=== PATIENT | female | born 1950 | race Caucasian/White ===

== ENCOUNTER 2017-02-27 21:08 | Emergency (ER) | payer MEDICARE, BC ==
[2017-02-27] MEDS ORDERED: SODIUM CHLORIDE 0.9% 1,000 ML IV STA (22:01)
[2017-02-27] MEDS ORDERED: ONDANSETRON 4 MG/2 ML VIAL IVP STA (22:01)
[2017-02-27] MEDS ORDERED: SODIUM CHLORIDE 0.9% 500 ML IV STA (22:01)
[2017-02-27] MEDS ORDERED: HYDROmorphone 1 MG/ML 1 ML SYRINGE IVP STA (22:01)
[2017-02-27] MEDS ORDERED: RX INFO: IV CONTRAST WAS GIVEN 1 EACH MISC MISCELLANE PRN (22:01)
[2017-02-27 23:01] LABS: Appearance,Urine Cloudy (Clear); Basophils % (A) 0 %; Bilirubin,Urine Negative (Negative); CHCM 32.6; Eosinophils # (A) 0.1 k/uL (0-0.7); Eosinophils % (A) 1 %; Glucose,Urine (UA) Negative (Negative); HCT 43.5 % (34.0-46.0); HGB 14.4 gm/dL (11.4-16.0); Ketones,Urine 1+ (Negative); Leukocyte Esterase,Urine Trace (Negative); Luc % (Auto) 1; Lymphocytes # (A) 1.1 k/uL (1.0-4.8); Lymphocytes % (A) 10 %; MCH 28.5 pg (25.0-35.0); MCHC 33.1 g/dL (31.0-37.0); MCV 86.3 fL (80.0-100.0); Mean Platelet Volume 6.7; Monocytes # (A) 0.3 k/uL (0-1.0); Monocytes % (A) 3 %; Mucus,Urine Rare /hpf; Neutrophils # (A) 9.5 k/uL (1.3-7.7); Neutrophils % (A) 86 %; Nitrite,Urine Negative (Negative); PH, Urine 7.5 (5.0-8.0); Particle Count 34099; Protein,Urine Trace (Negative); RBC 5.04 m/uL (3.80-5.40); RBC,Urine 97 /hpf (0-5); RDW 14.2 % (11.5-15.5); Specific Gravity,Urine 1.014 (1.001-1.035); Squamous Epithelial Cell,Urine <1 /hpf (0-4); UA Billing (MACRO vs. MICRO) MICRO; Urobilinogen,Urine <2.0 mg/dL (<2.0); WBC 11.1 k/uL (3.8-10.6); WBC (Perox) 10.17
[2017-02-27 23:08] LABS: ALT 24 U/L (9-52); AST 22 U/L (14-36); Alkaline Phosphatase 112 U/L (38-126); Amylase 49 U/L (30-110); Anion Gap 13 mmol/L; Blood Urea Nitrogen 25 mg/dL (7-17); C Reactive Protein <5.0 mg/L (<10.0); Calcium 10.1 mg/dL (8.4-10.2); Carbon Dioxide 21 mmol/L (22-30); Chloride 109 mmol/L (98-107); Glucose 136 mg/dL (74-99); Non-African American GFR(MDRD) 55 (>60 ml/min/1.73 sqM); Potassium 4.2 mmol/L (3.5-5.1); Sodium 143 mmol/L (137-145); Total Bilirubin 0.7 mg/dL (0.2-1.3); Total Protein 7.3 g/dL (6.3-8.2)
--- NOTE | 2017-02-27 23:30 | XR ---
EXAM: XR Abdomen, 1 View CLINICAL HISTORY: Reason: abdominal pain and constipation TECHNIQUE: Frontal supine view of the abdomen/pelvis. COMPARISON: None FINDINGS: Abdomen: Nonobstructive bowel gas pattern. No free air. Mild amount of stool. Cholecystectomy clips in the right upper quadrant. Surgical robert lie near the gastroesophageal junction. Bones: Degenerative changes of the spine. No acute abnormality. Soft tissues: Normal. Lower chest: Bibasilar opacities. IMPRESSION: Mild stool burden without evidence of obstruction.
[2017-02-28] MEDS ORDERED: ONDANSETRON 4 MG/2 ML VIAL IVP STA (00:25)
--- NOTE | 2017-02-28 00:29 | CT ---
EXAM: CT Abdomen and Pelvis With Intravenous Contrast CLINICAL HISTORY: Reason: abd pain and constipation, weakness TECHNIQUE: Axial computed tomography images of the abdomen and pelvis with intravenous contrast. CTDI is 43.40 mGy and DLP is 1632.10 mGy-cm. This CT exam was performed using one or more of the following dose reduction techniques: automated exposure control, adjustment of the mA and/or kV according to patient size, and/or use of iterative reconstruction technique. COMPARISON: None FINDINGS: Liver: Normal. No focal lesion. Spleen: Normal. No focal lesion. Gallbladder: Status post cholecystectomy. Pancreas: Mild atrophy. No mass. No inflammation. Adrenal glands: Normal. No mass. Kidneys: 4 mm stone in the distal right ureter just before the right UVJ with mild right-sided hydronephrosis and mild right hydroureter. Perinephric stranding and fluid which is prominent around the renal pelvis. Prominent periureteral stranding as well. Small superior right renal cyst. Peripelvic cysts bilaterally. Bowel: Normal appendix. Diverticulosis without evidence of diverticulitis. No bowel obstruction or inflammation. Urinary bladder: Normal. No wall thickening or mass. Reproductive organs: Status post hysterectomy. Muscles: No mass. Subcutaneous tissues: Small fat-containing umbilical hernia. Peritoneal space: Normal. No free fluid. Lymph nodes: Normal. No lymphadenopathy. Vessels: Minimal atherosclerotic calcification. No aneurysm or dissection. Bones: Prominent degenerative changes of right greater than left hips. Mild degenerative changes of the spine. No acute fracture or bony lesion. Lung bases: Bibasilar atelectasis versus scarring. Mild cardiomegaly. Other: Small hiatal hernia. Surgical clips near the gastroesophageal junction. IMPRESSION: 1. Mild right-sided hydroureteronephrosis with a 4 mm stone in the distal right ureter just before the right UVJ. Perinephric stranding and fluid, most prominent about the right renal pelvis. Prominent periureteral stranding as well. 2. Diverticulosis without evidence of diverticulitis. Normal appendix.
[2017-02-28 00:33] VITALS: RESP 18
--- NOTE | 2017-02-28 01:54 | ED ---
Abdominal Pain HPI - General Chief Complaint: Abdominal Pain Stated Complaint: Constipation Time Seen by Provider: 02/27/17 21:52 Source: patient Mode of arrival: wheelchair Limitations: no limitations - History of Present Illness Initial Comments: Extended years old female presented with right lower quadrant pain for about 2 hours prior to arrival in the ER she had her supper after she got nauseous she felt like she threw up pain is intractable saying its 10 over 10 it's in the right lower quadrant area he does not radiate. She is quite a few surgeries on the abdomen she status post hysterectomy, gallbladder, hernia repair and also has a history of kidney stones. Denies any headaches no neck stiffness no chest pain or shortness of breath no abdominal pain no frequency urgency dysuria - Related Data Previous Rx's Medication Instructions Recorded Ibuprofen [Motrin] 600 mg PO Q8HR PRN #45 tab 02/28/17 oxyCODONE-APAP 5-325MG [Percocet 1 tab PO Q6HR PRN #20 tab 02/28/17 5-325 mg] Allergies Allergy/AdvReac Type Severity Reaction Status Date / Time phenazopyridine AdvReac Nausea & Verified 02/27/17 21:18 [From Pyridium] Vomiting Review of Systems ROS Statement: Those systems with pertinent positive or pertinent negative responses have been documented in the HPI. ROS Other: All systems not noted in ROS Statement are negative. 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 Eye: Pupils are equal, round and reactive to light, extra-ocular movements are intact; there is normal conjunctiva bilaterally. Ears, nose, mouth and throat: There are moist mucous membranes and no oral lesions. Neck: The neck is supple, there is no tenderness or JVD. Cardiovascular: There is a regular rate and rhythm. No murmur, rub or gallop is appreciated. Respiratory: To auscultation bilateral, no wheezing no rhonchi no distress respiratory [place] noticed Gastrointestinal: Tender in the right lower quadrant area, positive bowel sounds, she is guarding present. Back: There is no tenderness to palpation in the midline. There is no obvious deformity. Musculoskeletal: Normal ROM, no tenderness, There is no pedal edema. There is no calf tenderness or swelling. No cords were appreciated. Neurological: CN II-XII intact, Cranial nerves III through XII are intact. There are no obvious motor or sensory deficits. Coordination appears grossly intact. Speech is normal. Psychiatric: Cooperative, appropriate mood & affect, normal judgment. Limitations: no limitations Course Vital Signs 02/27/17 02/28/17 21:13 00:29 Temperature 98 F Pulse Rate 59 L 73 Respiratory 20 18 Rate Blood Pressure 190/84 165/81 O2 Sat by Pulse 97 96 Oximetry , She required pain medications, nausea medicine finally pain improved her CBC is negative compressive metabolic panel C-reactive protein and KUB are negative , CT of the abdomen showed right hydroureter nephrosis - Reevaluation(s) Reevaluation #2: 02/28/17 01:49 , At term 145 she feels 80% better, I offered her that if she still in pain and we could watch her overnight, since pain is 80% better is is a likelihood that she has passed the stone there and she agreed to go home on pain medication and we can refer her to urology Dr. Escobedo is on today and she'll call his office was seen in the morning and make an appointment with him Medical Decision Making - Lab Data Result diagrams: 02/27/17 22:30 02/27/17 22:30 Lab Results 02/27/17 02/27/17 02/27/17 Range/Units 22:30 22:30 22:30 WBC 11.1 H (3.8-10.6) k/uL RBC 5.04 (3.80-5.40) m/uL Hgb 14.4 (11.4-16.0) gm/dL Hct 43.5 (34.0-46.0) % MCV 86.3 (80.0-100.0) fL MCH 28.5 (25.0-35.0) pg MCHC 33.1 (31.0-37.0) g/dL RDW 14.2 (11.5-15.5) % Plt Count 259 (150-450) k/uL Neutrophils % 86 % Lymphocytes % 10 % Monocytes % 3 % Eosinophils % 1 % Basophils % 0 % Neutrophils # 9.5 H (1.3-7.7) k/uL Lymphocytes # 1.1 (1.0-4.8) k/uL Monocytes # 0.3 (0-1.0) k/uL Eosinophils # 0.1 (0-0.7) k/uL Basophils # 0.0 (0-0.2) k/uL Sodium 143 (137-145) mmol/L Potassium 4.2 (3.5-5.1) mmol/L Chloride 109 H (98-107) mmol/L Carbon Dioxide 21 L (22-30) mmol/L Anion Gap 13 mmol/L BUN 25 H (7-17) mg/dL Creatinine 1.00 (0.52-1.04) mg/dL Est GFR (MDRD) Af Amer >60 (>60 ml/min/1.73 sqM) Est GFR (MDRD) Non-Af 55 (>60 ml/min/1.73 sqM) Glucose 136 H (74-99) mg/dL Plasma Lactic Acid [place] 1.8 (0.7-2.0) mmol/L Calcium 10.1 (8.4-10.2) mg/dL Total Bilirubin 0.7 (0.2-1.3) mg/dL AST 22 (14-36) U/L ALT 24 (9-52) U/L Alkaline Phosphatase 112 (38-126) U/L C-Reactive Protein <5.0 (<10.0) mg/L Total Protein 7.3 (6.3-8.2) g/dL Albumin 4.2 (3.5-5.0) g/dL Amylase 49 (30-110) U/L Lipase 27 (23-300) U/L Urine Color Urine Appearance (Clear) Urine pH (5.0-8.0) Ur Specific [place] (1.001-1.035) Urine Protein (Negative) Urine Glucose (UA) (Negative) Urine Ketones (Negative) Urine Blood (Negative) Urine Nitrite (Negative) Urine Bilirubin (Negative) Urine Urobilinogen (<2.0) mg/dL Ur Leukocyte Esterase (Negative) Urine RBC (0-5) /hpf Ur Squamous Epith Cells (0-4) /hpf Urine Mucus (None) /hpf 02/27/17 Range/Units 22:30 WBC (3.8-10.6) k/uL RBC (3.80-5.40) m/uL Hgb (11.4-16.0) gm/dL Hct (34.0-46.0) % MCV (80.0-100.0) fL MCH (25.0-35.0) pg MCHC (31.0-37.0) g/dL RDW (11.5-15.5) % Plt Count (150-450) k/uL Neutrophils % % Lymphocytes % % Monocytes % % Eosinophils % % Basophils % % Neutrophils # (1.3-7.7) k/uL Lymphocytes # (1.0-4.8) k/uL Monocytes # (0-1.0) k/uL Eosinophils # (0-0.7) k/uL Basophils # (0-0.2) k/uL Sodium (137-145) mmol/L Potassium (3.5-5.1) mmol/L Chloride (98-107) mmol/L Carbon Dioxide (22-30) mmol/L Anion Gap mmol/L BUN (7-17) mg/dL Creatinine (0.52-1.04) mg/dL Est GFR (MDRD) Af Amer (>60 ml/min/1.73 sqM) Est GFR (MDRD) Non-Af (>60 ml/min/1.73 sqM) Glucose (74-99) mg/dL Plasma Lactic Acid [place] (0.7-2.0) mmol/L Calcium (8.4-10.2) mg/dL Total Bilirubin (0.2-1.3) mg/dL AST (14-36) U/L ALT (9-52) U/L Alkaline Phosphatase (38-126) U/L C-Reactive Protein (<10.0) mg/L Total Protein (6.3-8.2) g/dL Albumin (3.5-5.0) g/dL Amylase (30-110) U/L Lipase (23-300) U/L Urine Color Yellow Urine Appearance Cloudy H (Clear) Urine pH 7.5 (5.0-8.0) Ur Specific [place] 1.014 (1.001-1.035) Urine Protein Trace H (Negative) Urine Glucose (UA) Negative (Negative) Urine Ketones 1+ H (Negative) Urine Blood Moderate H (Negative) Urine Nitrite Negative (Negative) Urine Bilirubin Negative (Negative) Urine Urobilinogen <2.0 (<2.0) mg/dL Ur Leukocyte Esterase Trace H (Negative) Urine RBC 97 H (0-5) /hpf Ur Squamous Epith Cells <1 (0-4) /hpf Urine Mucus Rare H (None) /hpf Disposition Clinical Impression: Right lower quadrant pain, Hydroureteronephrosis Disposition: HOME SELF-CARE Instructions: Abdominal Pain (ED) Prescriptions: Ibuprofen [Motrin] 600 mg PO Q8HR PRN #45 tab PRN Reason: Pain oxyCODONE-APAP 5-325MG [Percocet 5-325 mg] 1 tab PO Q6HR PRN #20 tab PRN Reason: Pain Referrals: Casey Isaac MD [Primary Care Provider] - 1-2 days Tigre Escobedo MD [STAFF PHYSICIAN] - 1-2 days
[2017-02-28 02:05] VITALS: BP 162/87; PULSE 70; TEMP 97.1
== END 2017-02-28 02:04 | disposition home or self-care (01) ==
LOC: EC 21:08
DX: N13.30 Unspecified hydronephrosis (principal); Z88.1 Allergy status to other antibiotic agents; Z90.49 Acquired absence of other specified parts of digestive tract; Z90.710 Acquired absence of both cervix and uterus; Z98.51 Tubal ligation status
CPT/HCPCS: 99284; 96374; 96375 ×2; 96361 ×3; 36415; 80053; 82150; 83605; 83690; 85025; 86140; 81001; 74000; 74177; Q9967; J2405 ×2; J1170; 96376

== ENCOUNTER 2017-02-28 19:26 | Emergency (ER) | payer MEDICARE, BC ==
[2017-02-28] MEDS ORDERED: ONDANSETRON 4 MG/2 ML VIAL IVP STA ×2 (20:06→22:16)
[2017-02-28] MEDS ORDERED: SODIUM CHLORIDE 0.9% 1,000 ML IV STA (20:06)
[2017-02-28] MEDS ORDERED: HYDROmorphone 1 MG/ML 1 ML SYRINGE IVP STA (20:06)
[2017-02-28 20:30] LABS: Basophils % (A) 0 %; CH 28.1; CHCM 32.7; Eosinophils # (A) 0.1 k/uL (0-0.7); Eosinophils % (A) 1 %; HCT 42.5 % (34.0-46.0); HDW 2.21; HGB 13.7 gm/dL (11.4-16.0); Luc # (Auto) 0.15; Luc % (Auto) 1; Lymphocytes # (A) 1.4 k/uL (1.0-4.8); Lymphocytes % (A) 13 %; MCH 27.7 pg (25.0-35.0); MCHC 32.1 g/dL (31.0-37.0); MCV 86.2 fL (80.0-100.0); Mean Platelet Volume 6.7; Monocytes # (A) 0.5 k/uL (0-1.0); Monocytes % (A) 5 %; Neutrophils # (A) 8.9 k/uL (1.3-7.7); Neutrophils % (A) 80 %; RBC 4.94 m/uL (3.80-5.40); RDW 14.3 % (11.5-15.5); WBC 11.1 k/uL (3.8-10.6); WBC (Perox) 10.55
[2017-02-28 20:37] LABS: ALT 22 U/L (9-52); AST 31 U/L (14-36); Alkaline Phosphatase 101 U/L (38-126); Amylase 50 U/L (30-110); Anion Gap 7 mmol/L; Blood Urea Nitrogen 22 mg/dL (7-17); Calcium 9.7 mg/dL (8.4-10.2); Carbon Dioxide 24 mmol/L (22-30); Chloride 110 mmol/L (98-107); Glucose 117 mg/dL (74-99); Non-African American GFR(MDRD) >60 (>60 ml/min/1.73 sqM); Potassium 4.5 mmol/L (3.5-5.1); Sodium 141 mmol/L (137-145); Total Bilirubin 0.9 mg/dL (0.2-1.3); Total Protein 7.6 g/dL (6.3-8.2)
--- NOTE | 2017-02-28 20:39 | XR ---
EXAMINATION TYPE: XR KUB DATE OF EXAM: 02/28/2017 8:31 PM COMPARISON: NONE HISTORY: Flank pain right lower quadrant pain TECHNIQUE: 2 views FINDINGS: Bowel gas pattern is normal. There is no sign of intestinal obstruction or pneumoperitoneum . Fecal pattern is normal. There are clips from cholecystectomy. There are no pathologic calcificatio ns over the kidneys. IMPRESSION: Nonacute abdomen. No change.
--- NOTE | 2017-02-28 20:41 | ED ---
Abdominal Pain HPI - General Chief Complaint: Abdominal Pain Stated Complaint: Abd Pain Time Seen by Provider: 02/28/17 20:05 Source: patient, RN notes reviewed, old records reviewed Mode of arrival: ambulatory Limitations: no limitations - History of Present Illness Initial Comments: 66-year-old female presents emergency Department chief complaint flank pain. Patient was seen here last night diagnosed with kidney stone. Patient states she was unable to picker tender her pain medication because her pharmacy was closed. She did not tarry or any other pharmacy. Patient states she just cannot tolerate the pain this time. Patient states she's nauseated and had an episode of vomiting. Denies fever or chills. Denies chest pain or shortness breath. He states it radiates from her right back region to her right lower abdomen. - Related Data Home Medications Medication Instructions Recorded Confirmed Aspirin EC [Ecotrin] 325 mg PO DAILY 02/28/17 02/28/17 Atenolol [Tenormin] 25 mg PO DAILY 02/28/17 02/28/17 Previous Rx's Medication Instructions Recorded Ibuprofen [Motrin] 600 mg PO Q8HR PRN #45 tab 02/28/17 oxyCODONE-APAP 5-325MG [Percocet 1 tab PO Q6HR PRN #20 tab 02/28/17 5-325 mg] Allergies Allergy/AdvReac Type Severity Reaction Status Date / Time phenazopyridine AdvReac Nausea & Verified 02/28/17 20:54 [From Pyridium] Vomiting Review of Systems ROS Statement: Those systems with pertinent positive or pertinent negative responses have been documented in the HPI. ROS Other: All systems not noted in ROS Statement are negative. 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 Absent: tenderness, meningismus, lymphadenopathy Respiratory exam: Present: normal lung sounds bilaterally. Absent: respiratory distress, wheezes, rales, rhonchi, stridor Cardiovascular Exam: Present: regular rate, normal rhythm, normal heart sounds. Absent: systolic murmur, diastolic murmur, rubs, gallop, clicks GI/Abdominal exam: Present: soft, tenderness (Minimal pain with palpation to the right flank region over the area of reported pain), normal bowel sounds. Absent: distended, guarding, rebound, rigid Back exam: Present: CVA tenderness (R). Absent: CVA tenderness (L) Neurological exam: Present: alert, oriented X3, CN II-XII intact Skin exam: Present: warm, dry, intact, normal color. Absent: rash Course Vital Signs 02/28/17 02/28/17 19:39 21:35 Temperature 99.2 F 98 F Pulse Rate 69 102 H Respiratory 20 18 Rate Blood Pressure 185/79 135/76 O2 Sat by Pulse 95 95 Oximetry Medical Decision Making - Medical Decision Making 66-year-old female presented emergency department for right flank pain. Patient has a kidney stone on CT yesterday. Patient is feeling improved after IV fluids, pain medication at this time. Patient was sent home with Tylenol codeine and Zofran starter packs. Patient does have prescription from yesterday that she can fill tomorrow when pharmacies are open - Lab Data Result diagrams: 02/28/17 20:15 02/28/17 20:15 Lab Results 02/28/17 02/28/17 02/28/17 Range/Units 20:15 20:15 22:10 WBC 11.1 H (3.8-10.6) k/uL RBC 4.94 (3.80-5.40) m/uL Hgb 13.7 (11.4-16.0) gm/dL Hct 42.5 (34.0-46.0) % MCV 86.2 (80.0-100.0) fL MCH 27.7 (25.0-35.0) pg MCHC 32.1 (31.0-37.0) g/dL RDW 14.3 (11.5-15.5) % Plt Count 269 (150-450) k/uL Neutrophils % 80 % Lymphocytes % 13 % Monocytes % 5 % Eosinophils % 1 % Basophils % 0 % Neutrophils # 8.9 H (1.3-7.7) k/uL Lymphocytes # 1.4 (1.0-4.8) k/uL Monocytes # 0.5 (0-1.0) k/uL Eosinophils # 0.1 (0-0.7) k/uL Basophils # 0.0 (0-0.2) k/uL Sodium 141 (137-145) mmol/L Potassium 4.5 (3.5-5.1) mmol/L Chloride 110 H (98-107) mmol/L Carbon Dioxide 24 (22-30) mmol/L Anion Gap 7 mmol/L BUN 22 H (7-17) mg/dL Creatinine 0.92 (0.52-1.04) mg/dL Est GFR (MDRD) Af Amer >60 (>60 ml/min/1.73 sqM) Est GFR (MDRD) Non-Af >60 (>60 ml/min/1.73 sqM) Glucose 117 H (74-99) mg/dL Calcium 9.7 (8.4-10.2) mg/dL Total Bilirubin 0.9 (0.2-1.3) mg/dL AST 31 (14-36) U/L ALT 22 (9-52) U/L Alkaline Phosphatase 101 (38-126) U/L Total Protein 7.6 (6.3-8.2) g/dL Albumin 4.3 (3.5-5.0) g/dL Amylase 50 (30-110) U/L Lipase 45 (23-300) U/L Urine Color Light Yellow Urine Appearance Clear (Clear) Urine pH 5.5 (5.0-8.0) Ur Specific [place] 1.013 (1.001-1.035) Urine Protein Negative (Negative) Urine Glucose (UA) Negative (Negative) Urine Ketones Trace H (Negative) Urine Blood Moderate H (Negative) Urine Nitrite Negative (Negative) Urine Bilirubin Negative (Negative) Urine Urobilinogen <2.0 (<2.0) mg/dL Ur Leukocyte Esterase Moderate H (Negative) Urine RBC 72 H (0-5) /hpf Urine WBC 4 (0-5) /hpf Ur Squamous Epith Cells 1 (0-4) /hpf Urine Mucus Rare H (None) /hpf Disposition Clinical Impression: Ureteral calculi Disposition: HOME SELF-CARE Condition: Stable Instructions: Kidney Stones (ED) Additional Instructions: Please return to the Emergency Department if symptoms worsen or any other concerns. Referrals: Casey Isaac MD [Primary Care Provider] - 1-2 days Time of Disposition: 22:29
[2017-02-28 21:37] VITALS: RESP 18
[2017-02-28] MEDS ORDERED: SODIUM CHLORIDE 0.9% 1,000 ML IV ONE (21:47)
[2017-02-28 22:25] LABS: Appearance,Urine Clear (Clear); Bilirubin,Urine Negative (Negative); Glucose,Urine (UA) Negative (Negative); Ketones,Urine Trace (Negative); Leukocyte Esterase,Urine Moderate (Negative); Mucus,Urine Rare /hpf; Nitrite,Urine Negative (Negative); PH, Urine 5.5 (5.0-8.0); Particle Count 1526; Protein,Urine Negative (Negative); RBC,Urine 72 /hpf (0-5); Specific Gravity,Urine 1.013 (1.001-1.035); Squamous Epithelial Cell,Urine 1 /hpf (0-4); UA Billing (MACRO vs. MICRO) MICRO; Urobilinogen,Urine <2.0 mg/dL (<2.0); WBC,Urine 4 /hpf (0-5)
[2017-02-28] MEDS ORDERED: ACET/COD 300 MG/30 MG STARTER PACK 6 TAB BTL PO STA (22:27)
[2017-02-28] MEDS ORDERED: ONDANSETRON 4 MG ODT STARTER PACK 2 TAB BTL PO STA (22:27)
[2017-02-28 22:51] VITALS: BP 158/81; PULSE 129; TEMP 98.5
== END 2017-02-28 22:50 | disposition home or self-care (01) ==
LOC: EC 19:26
DX: N20.1 Calculus of ureter (principal); Z90.49 Acquired absence of other specified parts of digestive tract; Z88.8 Allergy status to other drugs, medicaments and biological substances; Z79.82 Long term (current) use of aspirin; Z79.899 Other long term (current) drug therapy
CPT/HCPCS: 99284; 96374; 96375; 96376; 96361 ×2; 36415; 80053; 82150; 83690; 85025; 81001; 74000; J2405; J1170; S0119

== ENCOUNTER 2023-01-18 20:26 | Emergency (ER) | payer MEDICARE ==
[2023-01-18 21:07] VITALS: TEMP 98.3
[2023-01-18] MEDS ORDERED: SODIUM CHLORIDE 0.9% 500 ML 500 ML IV STA (21:37)
[2023-01-18 22:44] LABS: Basophils % (A) 0 %; Eosinophils # (A) 0.1 k/uL (0-0.7); Eosinophils % (A) 1 %; HCT 44.6 % (34.0-46.0); HGB 14.4 gm/dL (11.4-16.0); Lymphocytes # (A) 1.1 k/uL (1.0-4.8); Lymphocytes % (A) 12 %; MCH 28.2 pg (25.0-35.0); MCHC 32.4 g/dL (31.0-37.0); Mean Platelet Volume 7.4; Monocytes # (A) 0.4 k/uL (0-1.0); Monocytes % (A) 4 %; Neutrophils # (A) 7.7 k/uL (1.3-7.7); Neutrophils % (A) 82 %; Platelet Count 255 k/uL (150-450); RBC 5.12 m/uL (3.80-5.40); WBC 9.3 k/uL (3.8-10.6)
[2023-01-18 23:06] LABS: Appearance,Urine Clear (Clear); Bilirubin,Urine Negative (Negative); Blood,Urine Small (Negative); Color,Urine Light Yellow; Glucose,Urine (UA) Negative (Negative); Ketones,Urine Negative (Negative); Leukocyte Esterase,Urine Negative (Negative); Nitrite,Urine Negative (Negative); Protein,Urine Negative (Negative); RBC,Urine 15 /hpf (0-5); Specific Gravity,Urine 1.012 (1.001-1.035); Urobilinogen,Urine <2.0 mg/dL (<2.0); WBC,Urine 2 /hpf (0-5)
[2023-01-18 23:08] LABS: Albumin 4.1 g/dL (3.5-5.0); Calcium 9.2 mg/dL (8.4-10.2); Total Bilirubin 0.6 mg/dL (0.2-1.3); Total Protein 7.6 g/dL (6.3-8.2)
--- NOTE | 2023-01-18 23:17 | ED ---
Abdominal Pain HPI - General Chief Complaint: Abdominal Pain Stated Complaint: Kidney stones Time Seen by Provider: 01/18/23 21:33 Source: patient, family Mode of arrival: wheelchair Limitations: no limitations - History of Present Illness Initial Comments: Patient is a 72-year-old female presents to the emergency department for right back pain. Patient states this morning she felt urinary urgency and frequency. She denies any burning or blood in the urine. This evening patient felt pain in her right back which she states was similar to her kidney stone pain. The pain lasted about 5 minutes and went away. Patient has not had any pain since the episode. She denies any urinary symptoms currently. She denies fever, chills, nausea, vomiting. Denies chest pain and shortness of breath. - Related Data Home Medications Medication Instructions Recorded Confirmed Aspirin EC [Ecotrin] 325 mg PO HS 02/28/17 01/18/23 Oxybutynin Chloride 5 mg PO BID 01/18/23 01/18/23 Valsartan [Diovan] 160 mg PO DAILY 01/18/23 01/18/23 amLODIPine [Norvasc] 2.5 mg PO HS 01/18/23 01/18/23 Previous Rx's Medication Instructions Recorded Ondansetron Odt [Zofran Odt] 4 mg PO Q8HR PRN #9 tab 01/18/23 Tamsulosin [Flomax] 0.4 mg PO DAILY #7 cap 01/18/23 Allergies Allergy/AdvReac Type Severity Reaction Status Date / Time phenazopyridine AdvReac Nausea & Verified 01/18/23 22:19 [From Pyridium] Vomiting Review of Systems ROS Statement: Those systems with pertinent positive or pertinent negative responses have been documented in the HPI. ROS Other: All systems not noted in ROS Statement are negative. 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 Absent: respiratory distress, wheezes, rales, rhonchi, stridor Cardiovascular Exam: Present: normal rhythm, tachycardia (Patient states she has history of tachycardia, takes atenolol.), normal heart sounds. Absent: regular rate, systolic murmur, diastolic murmur, rubs, gallop, clicks GI/Abdominal exam: Present: soft, normal bowel sounds. Absent: distended, tenderness, guarding, rebound, rigid Back exam: Present: normal inspection. Absent: CVA tenderness (R), CVA tenderness (L), paraspinal tenderness, vertebral tenderness Neurological exam: Present: alert, oriented X3, CN II-XII intact Psychiatric exam: Present: normal affect, normal mood Skin exam: Present: warm, dry, intact, normal color. Absent: rash Course Vital Signs 01/18/23 21:03 Temperature 98.3 F Pulse Rate 122 H Respiratory 17 Rate Blood Pressure 158/92 O2 Sat by Pulse 95 Oximetry Medical Decision Making - Medical Decision Making Was pt. sent in by a medical professional or institution (, PA, MARBLEIZING MACHINE TENDER, urgent care, hospital, or long-term...) When possible be specific @ -No Did you speak to anyone other than the patient for history (EMS, parent, family, police, friend...)? What history was obtained from this source @ -No Did you review nursing and triage notes (agree or disagree)? Why? @ -I reviewed and agree with nursing and triage notes Were old charts reviewed (outside hosp., previous admission, EMS record, old EKG, old radiological studies, urgent care reports/EKG's, long-term records)? Report findings @ -No old charts were reviewed Differential Diagnosis (chest pain, altered mental status, abdominal pain women, abdominal pain men, vaginal bleeding, weakness, fever, dyspnea, syncope, headache, dizziness, GI bleed, back pain, seizure, CVA, palpatations, mental health)? @ -Differential Abdominal Pain Women: Appendicitis, Cholecystitis, diverticulosis, ischemic bowel, pancreatitis, hepatitis, UTI, gastroenteritis, AAA, incarcerated hernia, bowel obstruction, constipation, inflammatory bowel, hepatitis, peptic ulcer disease, splenic infarction, perforated viscus, vulvitis, ovarian torsion, PID, kidney stone, placenta abruption, this is not meant to be an all-inclusive list EKG interpreted by me (3pts min.). @ -As above X-rays interpreted by me (1pt min.). @ -None done CT interpreted by me (1pt min.). @ -Yes, CT of the abdomen and pelvis without contrast shows a 3 mm stone at the ureterovesicular junction with mild hydronephrosis U/S interpreted by me (1pt. min.). @ -None done What testing was considered but not performed or refused? (CT, X-rays, U/S, labs)? Why? @ -None What meds were considered but not given or refused? Why? @ -None Did you discuss the management of the patient with other professionals (professionals i.e. , PA, MARBLEIZING MACHINE TENDER, lab, RT, psych nurse, social science professor, pressure tester operator, teacher, chairman president and chief executive officer, case finisher)? Give summary @ -No Was smoking cessation discussed for >3mins.? @ -No Was critical care preformed (if so, how long)? @ -No Were there social determinants of health that impacted care today? How? (Homelessness, low income, unemployed, alcoholism, drug addiction, transportation, low edu. Level, literacy, decrease access to med. care, detention, rehab)? @ -No Was there de-escalation of care discussed even if they declined (Discuss DNR or withdrawal of care, Hospice)? DNR status @ -No What co-morbidities impacted this encounter? (DM, HTN, Smoking, COPD, CAD, Cancer, CVA, ARF, Chemo, Hep., AIDS, mental health diagnosis, sleep apnea, morbid obesity)? @ -None Was patient admitted / discharged? Hospital course, mention meds given and route, prescriptions, significant lab abnormalities, going to OR and other pertinent info. @ -Patient presenting for possible kidney stone. Patient has no symptoms currently. Laboratory studies obtained. Kidney function is relatively normal. Urinalysis does reveal blood. CT showed a 3 mm kidney stone at the ureterovesical junction with mild hydronephrosis. Patient given Flomax. Results discussed the patient she will be discharged with Flomax and Zofran. She will take Tylenol for pain as GFR is 60. She will follow up with urology and increase fluid intake. Undiagnosed new problem with uncertain prognosis? @ -No Drug Therapy requiring intensive monitoring for toxicity (Heparin, Nitro, Insuli n, Cardizem)? @ -No Were any procedures done? @ -No Diagnosis/symptom? @ -kidney stone Acute, or Chronic, or Acute on Chronic? @ acute Uncomplicated (without systemic symptoms) or Complicated (systemic symptoms)? @ -uncomplicated Side effects of treatment? @ -No Exacerbation, Progression, or Severe Exacerbation? @ -No Poses a threat to life or bodily function? How? (Chest pain, [place], [place], pneumonia, PE, COPD, DKA, ARF, appy, cholecystitis, CVA, Diverticulitis, Homicidal, Suicidal, threat to staff... and all critical care pts) @ -No Dr. Grimes is my attending - Lab Data Result diagrams: 01/18/23 22:10 01/18/23 22:10 Lab Results 01/18/23 01/18/23 01/18/23 Range/Units 22:10 22:10 22:10 WBC 9.3 (3.8-10.6) k/uL RBC 5.12 (3.80-5.40) m/uL Hgb 14.4 (11.4-16.0) gm/dL Hct 44.6 (34.0-46.0) % MCV 87.0 (80.0-100.0) fL MCH 28.2 (25.0-35.0) pg MCHC 32.4 (31.0-37.0) g/dL RDW 14.0 (11.5-15.5) % Plt Count 255 (150-450) k/uL MPV 7.4 Neutrophils % 82 % Lymphocytes % 12 % Monocytes % 4 % Eosinophils % 1 % Basophils % 0 % Neutrophils # 7.7 (1.3-7.7) k/uL Lymphocytes # 1.1 (1.0-4.8) k/uL Monocytes # 0.4 (0-1.0) k/uL Eosinophils # 0.1 (0-0.7) k/uL Basophils # 0.0 (0-0.2) k/uL Sodium 139 (137-145) mmol/L Potassium 4.0 (3.5-5.1) mmol/L Chloride 105 (98-107) mmol/L Carbon Dioxide 30 (22-30) mmol/L Anion Gap 4 mmol/L BUN 18 H (7-17) mg/dL Creatinine 0.95 (0.52-1.04) mg/dL Est GFR (CKD-EPI)AfAm 69 (>60 ml/min/1.73 sqM) Est GFR (CKD-EPI)NonAf 60 (>60 ml/min/1.73 sqM) Glucose 105 H (74-99) mg/dL Plasma Lactic Acid [place] (0.7-2.0) mmol/L Calcium 9.2 (8.4-10.2) mg/dL Total Bilirubin 0.6 (0.2-1.3) mg/dL AST 37 H (14-36) U/L ALT 20 (4-34) U/L Alkaline Phosphatase 122 (38-126) U/L Total Protein 7.6 (6.3-8.2) g/dL Albumin 4.1 (3.5-5.0) g/dL Urine Color Light Yellow Urine Appearance Clear (Clear) Urine pH 7.0 (5.0-8.0) Ur Specific [place] 1.012 (1.001-1.035) Urine Protein Negative (Negative) Urine Glucose (UA) Negative (Negative) Urine Ketones Negative (Negative) Urine Blood Small H (Negative) Urine Nitrite Negative (Negative) Urine Bilirubin Negative (Negative) Urine Urobilinogen <2.0 (<2.0) mg/dL Ur Leukocyte Esterase Negative (Negative) Urine RBC 15 H (0-5) /hpf Urine WBC 2 (0-5) /hpf 01/18/23 Range/Units 22:10 WBC (3.8-10.6) k/uL RBC (3.80-5.40) m/uL Hgb (11.4-16.0) gm/dL Hct (34.0-46.0) % MCV (80.0-100.0) fL MCH (25.0-35.0) pg MCHC (31.0-37.0) g/dL RDW (11.5-15.5) % Plt Count (150-450) k/uL MPV Neutrophils % % Lymphocytes % % Monocytes % % Eosinophils % % Basophils % % Neutrophils # (1.3-7.7) k/uL Lymphocytes # (1.0-4.8) k/uL Monocytes # (0-1.0) k/uL Eosinophils # (0-0.7) k/uL Basophils # (0-0.2) k/uL Sodium (137-145) mmol/L Potassium (3.5-5.1) mmol/L Chloride (98-107) mmol/L Carbon Dioxide (22-30) mmol/L Anion Gap mmol/L BUN (7-17) mg/dL Creatinine (0.52-1.04) mg/dL Est GFR (CKD-EPI)AfAm (>60 ml/min/1.73 sqM) Est GFR (CKD-EPI)NonAf (>60 ml/min/1.73 sqM) Glucose (74-99) mg/dL Plasma Lactic Acid [place] 1.3 (0.7-2.0) mmol/L Calcium (8.4-10.2) mg/dL Total Bilirubin (0.2-1.3) mg/dL AST (14-36) U/L ALT (4-34) U/L Alkaline Phosphatase (38-126) U/L Total Protein (6.3-8.2) g/dL Albumin (3.5-5.0) g/dL Urine Color Urine Appearance (Clear) Urine pH (5.0-8.0) Ur Specific [place] (1.001-1.035) Urine Protein (Negative) Urine Glucose (UA) (Negative) Urine Ketones (Negative) Urine Blood (Negative) Urine Nitrite (Negative) Urine Bilirubin (Negative) Urine Urobilinogen (<2.0) mg/dL Ur Leukocyte Esterase (Negative) Urine RBC (0-5) /hpf Urine WBC (0-5) /hpf Disposition Clinical Impression: Kidney stone on right side Disposition: HOME SELF-CARE Condition: Good Instructions (If sedation given, give patient instructions): Kidney Stones (ED) Additional Instructions: Increase water intake. Take medication as directed. Follow-up with urology in 1-2 days. Return to emergency department experience new, concerning, or w orsening symptoms. Prescriptions: Tamsulosin [Flomax] 0.4 mg PO DAILY #7 cap Ondansetron Odt [Zofran Odt] 4 mg PO Q8HR PRN #9 tab PRN Reason: Nausea Is patient prescribed a controlled substance at d/c from ED?: No Referrals: Casey Isaac MD [Primary Care Provider] - 1-2 days Tigre Escobedo MD [STAFF PHYSICIAN] - 1-2 days
--- NOTE | 2023-01-18 23:33 | CT ---
EXAMINATION TYPE: CT abdomen pelvis wo con CT DLP: 1125.4 mGycm, Automated exposure control for dose reduction was used. DATE OF EXAM: 01/18/2023 10:49 PM COMPARISON: [facility] 07/01/2017. CLINICAL INDICATION:Female, 72 years old with history of right flank pain; flank pain TECHNIQUE: Standard CT of the abdomen and pelvis without IV or oral contrast. Lack of IV or oral co ntrast limits evaluation of solid and hollow organ viscera. Coronal and sagittal reformats were perfo rmed. FINDINGS: LOWER CHEST: Bibasilar subsegmental atelectasis. Cardiomegaly. No pericardial effusion. ABDOMEN LIVER: Unremarkable noncontrast appearance. GALLBLADDER AND BILE DUCTS: The gallbladder is surgically absent. PANCREAS: Fatty infiltration of the pancreas. SPLEEN: Unremarkable noncontrast appearance. ADRENAL GLANDS: Unremarkable noncontrast appearance. KIDNEYS AND URETERS: Mild right hydroureteronephrosis with an obstructing 3 mm calculus at the ureter ovesical junction. Additional nonobstructive right mid kidney 2 mm calculus. No hydronephrosis involv ing the left kidney. Bilateral renal sinus cysts. Nonspecific bilateral perinephric fat stranding. PELVIS BLADDER: Unremarkable REPRODUCTIVE: The uterus is surgically absent. ABDOMEN & PELVIS STOMACH AND BOWEL: Postsurgical of the GE junction. Distal colonic diverticulosis without evidence fo r acute diverticulitis. No focal wall thickening or surrounding inflammatory changes. No evidence of bowel obstruction. PERITONEUM: No evidence of pneumoperitoneum or free fluid. VASCULATURE: Mild atherosclerotic calcifications are present throughout the abdominal aorta and its b ranches. No evidence of aortic aneurysm. MUSCULOSKELETAL: No acute osseous abnormalities. Grade 1 anterolisthesis of L4 on L5 without evidence of pars defects. LYMPH NODES: No gross evidence for lymphadenopathy. SOFT TISSUE/ABDOMINAL WALL: Small fat filled umbilical hernia. IMPRESSION: 1. Mild right hydroureteronephrosis with an obstructing 3 mm calculus at the ureterovesical junction . Additional nonobstructive right renal calculus. 2. Colonic diverticulosis without evidence for acute diverticulitis.
[2023-01-18] MEDS ORDERED: TAMSULOSIN 0.4 MG CAP.ER.24H PO STA (23:44)
[2023-01-19 00:40] VITALS: BP 140/88; PULSE 98; RESP 16
== END 2023-01-19 00:25 | disposition home or self-care (01) ==
LOC: EC 20:26
DX: N13.2 Hydronephrosis with renal and ureteral calculous obstruction (principal); K57.30 Diverticulosis of large intestine without perforation or abscess without bleeding; Z79.82 Long term (current) use of aspirin; Z88.8 Allergy status to other drugs, medicaments and biological substances
CPT/HCPCS: 36415; 74176; 80053; 81001; 83605; 85025; 96360; 99284

== ENCOUNTER → 2024-05-18 | Outpatient (CLI) | payer MEDICARE | END | disposition home or self-care (01) | LOC: LABPRL 02:30 | PROVIDERS: ATTEND Internal Medicine | DX: I10 Essential (primary) hypertension (principal); E78.5 Hyperlipidemia, unspecified | CPT/HCPCS: 80053; 80061; 84443; 85027 ==

== ENCOUNTER 2025-01-16 20:55 | Emergency (ER) | payer MEDICARE ==
[2025-01-16 21:01] VITALS: TEMP 98.7
[2025-01-16] MEDS: SODIUM CHLORIDE 0.9% 1,000 ML IV ONE (21:40)
--- NOTE | 2025-01-16 22:15 | CT ---
EXAMINATION TYPE: CT abdomen pelvis wo con DATE OF EXAM: 01/16/2025 9:57 PM COMPARISON: 01/18/2023. CLINICAL INDICATION: Female, 74 years old with history of abdominal pain; Patient c/o intermittent ab d pain and states she urinated blood tonight. hx diverticulitis TECHNIQUE: Axial CT abdomen pelvis wo con;Sagittal and coronal reformats were created on a separate workstation. Contrast used: mL of , (none if empty) Oral contrast used: without Oral Contrast (none if empty) CT DLP: 901.4 mGycm, Automated exposure control for dose reduction was used. FINDINGS: LOWER CHEST: The heart is enlarged for size. ABDOMEN LIVER: Unremarkable GALLBLADDER AND BILE DUCTS: The gallbladder surgically absent. PANCREAS: Lipomatous atrophy changes of the pancreas parenchyma. SPLEEN: Unremarkable. ADRENAL GLANDS: Unremarkable. 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 Peripelv ic renal cysts bilaterally. No obstructive renal calculi measuring up to 4 mm. No. Recommended for cy st. PELVIS BLADDER: No evidence for wall thickening or mass given limitations of exam. REPRODUCTIVE: The uterus is surgically absent. ABDOMEN & PELVIS STOMACH AND BOWEL: No evidence of bowel obstruction. Postsurgical changes around the gastroesophageal junction with surgical clips. Scattered colonic diverticula. PERITONEUM/RETROPERITONEUM: No evidence of pneumoperitoneum or free fluid. VASCULATURE: No evidence of aortic aneurysm. MUSCULOSKELETAL: No acute osseous abnormalities LYMPH NODES: No gross evidence for lymphadenopathy. SOFT TISSUE/ABDOMINAL WALL: Unremarkable IMPRESSION: 1. Mild right hydronephrosis secondary obstructing 5 mm calculus and the distal ureter. Additional nonobstructing bilateral renal calculi. 2. Colonic diverticulosis. 3. Mild cardiomegaly. [facility], , 01/16/2025 10:12 PM
[2025-01-16 22:19] LABS: Appearance,Urine Cloudy (Clear); Bilirubin,Urine Negative (Negative); Blood,Urine Large (Negative); Budding Yeast,Urine Rare /hpf; Calcium Oxalate Crystals,Urine Occasional /hpf; Color,Urine Light Red; Glucose,Urine (UA) Negative (Negative); Ketones,Urine Negative (Negative); Leukocyte Esterase,Urine Small (Negative); Mucus,Urine Rare /hpf; Nitrite,Urine Negative (Negative); Protein,Urine 1+ (Negative); RBC,Urine >182 /hpf (0-5); Specific Gravity,Urine 1.013 (1.001-1.035); Squamous Epithelial Cell,Urine 1 /hpf (0-4); Urobilinogen,Urine <2.0 mg/dL (<2.0); WBC,Urine 50 /hpf (0-5)
[2025-01-16 22:33] LABS: ALT 16 U/L (4-34); AST 34 U/L (14-36); African American GFR (CKD) 77 (>60 ml/min/1.73 sqM); Albumin 4.3 g/dL (3.5-5.0); Alkaline Phosphatase 122 U/L (38-126); Amylase 36 U/L (30-110); Anion Gap 8 mmol/L; Blood Urea Nitrogen 16 mg/dL (7-17); Calcium 9.4 mg/dL (8.4-10.2); Carbon Dioxide 27 mmol/L (22-30); Chloride 102 mmol/L (98-107); Glucose 106 mg/dL (74-99); Lipase 31 U/L (23-300); Non-African American GFR(CKD) 67 (>60 ml/min/1.73 sqM); Sodium 137 mmol/L (137-145); Total Bilirubin 0.9 mg/dL (0.2-1.3); Total Protein 7.5 g/dL (6.3-8.2)
[2025-01-16 22:40] LABS: Basophils # (A) 0.02 10*3/uL (0.00-0.10); Basophils % (A) 0.3 %; Eosinophils # (A) 0.18 10*3/uL (0.04-0.35); Eosinophils % (A) 2.9 %; HGB 15.4 g/dL (12.0-15.0); Lymphocytes # (A) 1.41 10*3/uL (0.90-5.00); Lymphocytes % (A) 22.4 %; MCH 28.4 pg (27.0-32.0); MCHC 33.5 g/dL (32.0-37.0); MCV 84.9 fL (80.0-97.0); Mean Platelet Volume 9.8 fL (9.5-12.2); Monocytes # (A) 0.43 10*3/uL (0.20-1.00); Monocytes % (A) 6.8 %; Neutrophils # (A) 4.21 10*3/uL (1.80-7.70); Platelet Count 289 10*3/uL (140-440); RBC 5.42 10*6/uL (4.10-5.20); RDW 13.4 % (11.5-14.5); WBC 6.29 10*3/uL (4.50-10.00)
[2025-01-16] MEDS: KETOROLAC 15 MG/ML 1 ML VIAL IVP STA (23:12)
--- NOTE | 2025-01-16 23:26 | ED ---
Abdominal Pain HPI - General Chief Complaint: Abdominal Pain Stated Complaint: blood in urine Time Seen by Provider: 01/16/25 21:14 Source: patient Mode of arrival: ambulatory Limitations: no limitations - History of Present Illness Initial Comments: 74-year-old female presenting with chief complaint of abdominal pain. Patient reports that the pain started earlier today located on the right side in the middle. She does have history of kidney stones. She also reports hematuria today. No dysuria urgency or frequency. She had normal bowel movement today. No nausea or vomiting. She reports that this pain is sharp with no alleviating or aggravating factors. No fever or chills. - Related Data Home Medications Medication Instructions Recorded Confirmed Aspirin EC [Ecotrin] 325 mg PO HS 02/28/17 01/18/23 Valsartan [Diovan] 160 mg PO DAILY 01/18/23 01/18/23 amLODIPine [Norvasc] 2.5 mg PO HS 01/18/23 01/18/23 oxyBUTYnin chloride 5 mg PO BID 01/18/23 01/18/23 Previous Rx's Medication Instructions Recorded Ondansetron Odt [Zofran Odt] 4 mg PO Q8HR PRN #9 tab 01/18/23 Tamsulosin [Flomax] 0.4 mg PO DAILY #7 cap 01/18/23 Acetaminophen-Codeine 300-30mg 1 tab PO Q6H PRN 3 Days #12 tablet 01/16/25 [Tylenol w/codeine #3] Ketorolac [Toradol] 10 mg PO Q6HR PRN #8 tab 01/16/25 Tamsulosin [Flomax] 0.4 mg PO DAILY #10 cap 01/16/25 Allergies Allergy/AdvReac Type Severity Reaction Status Date / Time phenazopyridine AdvReac Nausea & Verified 01/16/25 21:00 [From Pyridium] Vomiting Review of Systems ROS Statement: Those systems with pertinent positive or pertinent negative responses have been documented in the HPI. ROS Other: All systems not noted in ROS Statement are negative. 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 Absent: meningismus Respiratory exam: Present: normal lung sounds bilaterally. Absent: respiratory distress, wheezes, rales, rhonchi, stridor Cardiovascular Exam: Present: normal rhythm, tachycardia, normal heart sounds. Absent: systolic murmur, diastolic murmur, rubs, gallop, clicks GI/Abdominal exam: Present: soft. Absent: distended, tenderness, guarding, rebound, rigid Back exam: Present: CVA tenderness (R). Absent: CVA tenderness (L) Neurological exam: Present: alert, oriented X3 Psychiatric exam: Present: normal affect, normal mood Skin exam: Present: warm, dry, normal color Course Vital Signs 01/16/25 01/16/25 01/16/25 20:56 22:59 23:58 Temperature 98.7 F Pulse Rate 133 H 121 H 113 H Respiratory 20 18 16 Rate Blood Pressure 149/85 112/70 113/74 O2 Sat by Pulse 93 L 95 98 Oximetry Medical Decision Making - Medical Decision Making Was pt. sent in by a medical professional or institution (Dr. PA, [employer], urgent care, hospital, or long-term...) When possible be specific @ -No Did you speak to anyone other than the patient for history (EMS, parent, family, police, friend...)? What history was obtained from this source @ -No Did you review nursing and triage notes (agree or disagree)? Why? @ -I reviewed and agree with nursing and triage notes Were old charts reviewed (outside hosp., previous admission, EMS record, old EKG, old radiological studies, urgent care reports/EKG's, long-term records)? Report findings @ -No old charts were reviewed Differential Diagnosis (chest pain, altered mental status, abdominal pain women, abdominal pain men, vaginal bleeding, weakness, fever, dyspnea, syncope, headache, dizziness, GI bleed, back pain, seizure, CVA, palpatations, mental health, musculoskeletal)? @ -MDM Differential Abdominal Pain Women: Appendicitis, Cholecystitis, diverticulosis, ischemic bowel, pancreatitis, hepatitis, UTI, gastroenteritis, AAA, incarcerated hernia, bowel obstruction, constipation, inflammatory bowel, hepatitis, peptic ulcer disease, splenic infarction, perforated viscus, vulvitis, ovarian torsion, PID, kidney stone, placenta abruption... This is not meant to be an all-inclusive list EKG interpreted by me (3pts min.). @ -EKG shows sinus tachycardia ventricular rate 134. OH interval 149. QRS 78. QT 277. QTc 356. X-rays interpreted by me (1pt min.). @ -None done CT interpreted by me (1pt min.). @ -CT shows mild right hydronephrosis secondary to obstructing 5 mm calculus in the distal ureter. Additional nonobstructing bilateral renal calculi. Colonic diverticulosis. Mild cardiomegaly U/S interpreted by me (1pt. min.). @ -None done What testing was considered but not performed or refused? (CT, X-rays, U/S, labs)? Why? @ -None What meds were considered but not given or refused? Why? @ -None Did you discuss the management of the patient with other professionals (professionals i.e. , PA, [employer], lab, RT, psych nurse, director of social media marketing, environmental lawyer, teacher, complaint investigations officer, rn field case manager)? Give summary @ -No Was smoking cessation discussed for >3mins.? @ -No Was critical care preformed (if so, how long)? @ -No Were there social determinants of health that impacted care today? How? (Homelessness, low income, unemployed, alcoholism, drug addiction, transportation, low edu. Level, literacy, decrease access to med. care, [facility], r ehab)? @ -No Was there de-escalation of care discussed even if they declined (Discuss DNR or withdrawal of care, Hospice)? DNR status @ -No What co-morbidities impacted this encounter? (DM, HTN, Smoking, COPD, CAD, Cancer, CVA, ARF, Chemo, Hep., AIDS, mental health diagnosis, sleep apnea, morbid obesity)? @ -None Was patient admitted / discharged? Hospital course, mention meds given and route, prescriptions, significant lab abnormalities, going to OR and other pertinent info. @ -74-year-old female presenting with chief complaint of right-sided abdominal pain that started today. History and physical examination are conducted. No leukocytosis. Urine shows large blood with greater than 182 RBCs. There are some small leukocytes which may be reactive. CT is positive for 5 mm distal ure teral calculus. Patient initially refused pain medication, she is given Toradol for her pain. She is educated on today's findings and management plan. Follow- up with urology. Follow-up with PCP. Report back to ER with any new or worsening symptoms. Discussed return parameters and answered all questions. Patient conveyed verbal understanding and agreed to the plan. I discussed this case in detail with my attending Dr. Steven Undiagnosed new problem with uncertain prognosis? @ -No Drug Therapy requiring intensive monitoring for toxicity (Heparin, Nitro, Insulin, Cardizem)? @ -No Were any procedures done? @ -No Diagnosis/symptom? @ -Kidney stone Acute, or Chronic, or Acute on Chronic? @ -Acute Uncomplicated (without systemic symptoms) or Complicated (systemic symptoms)? @ -Uncomplicated Side effects of treatment? @ -No Exacerbation, Progression, or Severe Exacerbation? @ -No Poses a threat to life or bodily function? How? (Chest pain, USA, CT, pneumonia, PE, COPD, DKA, ARF, appy, cholecystitis, CVA, Diverticulitis, Homicidal, Suicidal, threat to staff... and all critical care pts) @ -unlikely - Lab Data Result diagrams: 01/16/25 21:39 01/16/25 21:39 Lab Results 01/16/25 01/16/25 01/16/25 Range/Units 21:39 21:39 21:39 WBC 6.29 (4.50-10.00) 10*3/uL RBC 5.42 H (4.10-5.20) 10*6/uL Hgb 15.4 H (12.0-15.0) g/dL Hct 46.0 (37.2-46.3) % MCV 84.9 (80.0-97.0) fL MCH 28.4 (27.0-32.0) pg MCHC 33.5 (32.0-37.0) g/dL Plt Count 289 (140-440) 10*3/uL MPV 9.8 (9.5-12.2) fL Immature Gran % (Auto) 0.6 % Neutrophils % 67.0 % Lymphocytes % 22.4 % Monocytes % 6.8 % Eosinophils % 2.9 % Basophils % 0.3 % Immature Gran # 0.04 (0.00-0.04) 10*3/uL Neutrophils # 4.21 (1.80-7.70) 10*3/uL Lymphocytes # 1.41 (0.90-5.00) 10*3/uL Monocytes # 0.43 (0.20-1.00) 10*3/uL Eosinophils # 0.18 (0.04-0.35) 10*3/uL Basophils # 0.02 (0.00-0.10) 10*3/uL Sodium 137 (137-145) mmol/L Potassium 4.0 (3.5-5.1) mmol/L Chloride 102 (98-107) mmol/L Carbon Dioxide 27 (22-30) mmol/L Anion Gap 8 mmol/L BUN 16 (7-17) mg/dL Creatinine 0.85 (0.52-1.04) mg/dL Est GFR (CKD-EPI)AfAm 77 (>60 ml/min/1.73 sqM) Est GFR (CKD-EPI)NonAf 67 (>60 ml/min/1.73 sqM) Glucose 106 H (74-99) mg/dL Plasma Lactic Acid [place] (0.7-2.0) mmol/L Calcium 9.4 (8.4-10.2) mg/dL Total Bilirubin 0.9 (0.2-1.3) mg/dL AST 34 (14-36) U/L ALT 16 (4-34) U/L Alkaline Phosphatase 122 (38-126) U/L Total Protein 7.5 (6.3-8.2) g/dL Albumin 4.3 (3.5-5.0) g/dL Amylase 36 (30-110) U/L Lipase 31 (23-300) U/L Urine Color Light Red Urine Appearance Cloudy H (Clear) Urine pH 6.0 (5.0-8.0) Ur Specific [place] 1.013 (1.001-1.035) Urine Protein 1+ H (Negative) Urine Glucose (UA) Negative (Negative) Urine Ketones Negative (Negative) Urine Blood Large H (Negative) Urine Nitrite Negative (Negative) Urine Bilirubin Negative (Negative) Urine Urobilinogen <2.0 (<2.0) mg/dL Ur Leukocyte Esterase Small H (Negative) Urine RBC >182 H (0-5) /hpf Urine WBC 50 H (0-5) /hpf Ur Squamous Epith Cells 1 (0-4) /hpf Calcium Oxalate Crystal Occasional H (None) /hpf Urine Mucus Rare H (None) /hpf Urine Yeast (Budding) Rare H (None) /hpf 01/16/25 Range/Units 21:39 WBC (4.50-10.00) 10*3/uL RBC (4.10-5.20) 10*6/uL Hgb (12.0-15.0) g/dL Hct (37.2-46.3) % MCV (80.0-97.0) fL MCH (27.0-32.0) pg MCHC (32.0-37.0) g/dL Plt Count (140-440) 10*3/uL MPV (9.5-12.2) fL Immature Gran % (Auto) % Neutrophils % % Lymphocytes % % Monocytes % % Eosinophils % % Basophils % % Immature Gran # (0.00-0.04) 10*3/uL Neutrophils # (1.80-7.70) 10*3/uL Lymphocytes # (0.90-5.00) 10*3/uL Monocytes # (0.20-1.00) 10*3/uL Eosinophils # (0.04-0.35) 10*3/uL Basophils # (0.00-0.10) 10*3/uL Sodium (137-145) mmol/L Potassium (3.5-5.1) mmol/L Chloride (98-107) mmol/L Carbon Dioxide (22-30) mmol/L Anion Gap mmol/L BUN (7-17) mg/dL Creatinine (0.52-1.04) mg/dL Est GFR (CKD-EPI)AfAm (>60 ml/min/1.73 sqM) Est GFR (CKD-EPI)NonAf (>60 ml/min/1.73 sqM) Glucose (74-99) mg/dL Plasma Lactic Acid [place] 0.7 (0.7-2.0) mmol/L Calcium (8.4-10.2) mg/dL Total Bilirubin (0.2-1.3) mg/dL AST (14-36) U/L ALT (4-34) U/L Alkaline Phosphatase (38-126) U/L Total Protein (6.3-8.2) g/dL Albumin (3.5-5.0) g/dL Amylase (30-110) U/L Lipase (23-300) U/L Urine Color Urine Appearance (Clear) Urine pH (5.0-8.0) Ur Specific [place] (1.001-1.035) Urine Protein (Negative) Urine Glucose (UA) (Negative) Urine Ketones (Negative) Urine Blood (Negative) Urine Nitrite (Negative) Urine Bilirubin (Negative) Urine Urobilinogen (<2.0) mg/dL Ur Leukocyte Esterase (Negative) Urine RBC (0-5) /hpf Urine WBC (0-5) /hpf Ur Squamous Epith Cells (0-4) /hpf Calcium Oxalate Crystal (None) /hpf Urine Mucus (None) /hpf Urine Yeast (Budding) (None) /hpf Disposition Clinical Impression: Kidney stone Disposition: HOME SELF-CARE Condition: Good Instructions (If sedation given, give patient instructions): Kidney Stones (ED) Additional Instructions: Follow-up with PCP and urology. Report back to ER with any new or worsening symptoms. Take medication as prescribed. Prescriptions: Tamsulosin [Flomax] 0.4 mg PO DAILY #10 cap Ketorolac [Toradol] 10 mg PO Q6HR PRN #8 tab PRN Reason: Pain Acetaminophen-Codeine 300-30mg [Tylenol w/codeine #3] 1 tab PO Q6H PRN 3 Days #12 tablet PRN Reason: Pain Is patient prescribed a controlled substance at d/c from ED?: Yes When asked, does pt state using other controlled substances?: No If prescribed controlled substance>3 days was MAPS reviewed?: Prescribed <3 Days If opioid is for acute pain is fill amount 7 days or less?: Yes If Rx opioid, was Start Talking consent form obtained?: Yes Referrals: Casey Isaac MD [Primary Care Provider] - 1-2 days Andres Hensley MD [STAFF PHYSICIAN] - 1-2 days Time of Disposition: 23:43
[2025-01-17] VITALS: BP 113/74; PULSE 113; RESP 16
== END 2025-01-17 | disposition home or self-care (01) ==
LOC: EC 20:55
DX: N13.2 Hydronephrosis with renal and ureteral calculous obstruction (principal); Z88.8 Allergy status to other drugs, medicaments and biological substances
CPT/HCPCS: 36415; 93005; 80053; 82150; 83605; 83690; 85025; 81001; 87086; 74176; 99284; 96374; 96361; J1885

== ENCOUNTER 2025-02-03 00:14 | Emergency (ER) | payer MEDICARE ==
[2025-02-03 00:20] VITALS: TEMP 97.9
--- NOTE | 2025-02-03 00:24 | ED ---
Abdominal Pain HPI - General Chief Complaint: Abdominal Pain Stated Complaint: Left side abd pain Time Seen by Provider: 02/03/25 00:23 Source: patient, RN notes reviewed, old records reviewed Mode of arrival: wheelchair Limitations: no limitations - History of Present Illness Initial Comments: This is a 74-year-old female to the ER for evaluation patient presents today for abdominal pain severe abdominal pain today. Positive nausea vomiting no fevers no travel history no sick contacts no other complaints pain is mainly flank pain in origin MD Complaint: flank pain -: hour(s) Location: R flank Radiation: R flank Severity: severe Severity scale (1-10): 8 Quality: stabbing Consistency: constant Improves With: nothing Worsens With: nothing Associated Symptoms: nausea, vomiting Treatments Prior to Arrival: NSAIDs - Related Data Home Medications Medication Instructions Recorded Confirmed Aspirin EC [Ecotrin] 325 mg PO HS 02/28/17 01/18/23 Valsartan [Diovan] 160 mg PO DAILY 01/18/23 01/18/23 amLODIPine [Norvasc] 2.5 mg PO HS 01/18/23 01/18/23 oxyBUTYnin chloride 5 mg PO BID 01/18/23 01/18/23 Previous Rx's Medication Instructions Recorded Ondansetron Odt [Zofran Odt] 4 mg PO Q8HR PRN #9 tab 01/18/23 Tamsulosin [Flomax] 0.4 mg PO DAILY #7 cap 01/18/23 Acetaminophen-Codeine 300-30mg 1 tab PO Q6H PRN 3 Days #12 tablet 01/16/25 [Tylenol w/codeine #3] Ketorolac [Toradol] 10 mg PO Q6HR PRN #8 tab 01/16/25 Tamsulosin [Flomax] 0.4 mg PO DAILY #10 cap 01/16/25 Allergies Allergy/AdvReac Type Severity Reaction Status Date / Time phenazopyridine AdvReac Nausea & Verified 02/03/25 00:20 [From Pyridium] Vomiting Review of Systems ROS Statement: Those systems with pertinent positive or pertinent negative responses have been documented in the HPI. ROS Other: All systems not noted in ROS Statement are negative. 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 Absent: scleral icterus, conjunctival injection, periorbital swelling ENT exam: Present: normal exam, mucous membranes moist Neck exam: Present: normal inspection. Absent: tenderness, meningismus, lymphadenopathy Respiratory exam: Present: normal lung sounds bilaterally. Absent: respiratory distress, wheezes, rales, rhonchi, stridor Cardiovascular Exam: Present: regular rate, normal rhythm, normal heart sounds. Absent: systolic murmur, diastolic murmur, rubs, gallop, clicks GI/Abdominal exam: Present: soft, normal bowel sounds. Absent: distended, tenderness, guarding, rebound, rigid Extremities exam: Present: normal inspection, full ROM, normal capillary refill. Absent: tenderness, pedal edema, joint swelling, calf tenderness Back exam: Present: normal inspection Neurological exam: Present: alert, oriented X3, CN II-XII intact Psychiatric exam: Present: normal affect, normal mood Skin exam: Present: warm, dry, intact, normal color. Absent: rash Course Vital Signs 02/03/25 00:16 Temperature 97.9 F Pulse Rate 123 H Respiratory 20 Rate Blood Pressure 158/105 O2 Sat by Pulse 96 Oximetry - Reevaluation(s) Reevaluation #1: 02/03/25 03:42 Medical records reviewed Reevaluation #2: 02/03/25 03:42 Patient's pain is improved Reevaluation #3: 02/03/25 03:42 Patient informed of results and questions answered Reevaluation #4: Was pt. sent in by a medical professional or institution (, PA, CAR DISTRIBUTOR, urgent care, hospital, or senior care...) When possible be specific @ -no Did you speak to anyone other than the patient for history (EMS, parent, family, police, friend...)? What history was obtained from this source @ -no Did you review nursing and triage notes (agree or disagree)? Why? @ -agree Are old charts reviewed (outside hosp., previous admission, EMS record, old EKG, old radiological studies, urgent care reports/EKG's, senior care records)? Report findings @ -yes Differential Diagnosis (chest pain, altered mental status, abdominal pain women, abdominal pain men, vaginal bleeding, weakness, fever, dyspnea, syncope, headache, dizziness, GI bleed, back pain, seizure, CVA, palpatations, mental health, musculoskeletal)? @ -prior EKG interpreted by me (3pts min.). @ -yes X-rays interpreted by me (1pt min.). @ -yes negative for acute disease CT interpreted by me (1pt min.). @ -no U/S interpreted by me (1pt. min.). @ -no What testing was considered but not performed or refused? (CT, X-rays, U/S, labs)? Why? @ -none What meds were considered but not given or refused? Why? @ -none Did you discuss the management of the patient with other professionals (professionals i.e. , PA, CAR DISTRIBUTOR, lab, RT, psych nurse, family welfare social work professor, yoker machine operator, teacher, corporate trust officer, high risk case manager)? Give summary @ -no Was smoking cessation discussed for >3mins.? @ -no Was critical care preformed (if so, how long)? @ -no Were there social determinants of health that impacted care today? How? (Homelessness, low income, unemployed, alcoholism, drug addiction, transportation, low edu. Level, literacy, decrease access to med. care, shelter, rehab)? @ -none Was there de-escalation of care discussed even if they declined (Discuss DNR or withdrawal of care, Hospice)? DNR status @ -no What co-morbidities impacted this encounter? (DM, HTN, Smoking, COPD, CAD, Cancer, CVA, ARF, Chemo, Hep., AIDS, mental health diagnosis, sleep apnea, morbid obesity)? @ -none Was patient admitted / discharged? Hospital course, mention meds given and route, prescriptions, significant lab abnormalities, going to OR and other pertinent info. @ - Undiagnosed new problem with uncertain prognosis? @ -no Drug Therapy requiring intensive monitoring for toxicity (Heparin, Nitro, Insulin, Cardizem)? @ -no Were any procedures done? @ -no Diagnosis/symptom? @ - Acute, or Chronic, or Acute on Chronic? @ -Acute Uncomplicated (without systemic symptoms) or Complicated (systemic symptoms)? @ -Complicated Side effects of treatment? @ -no Exacerbation, Progression, or Severe Exacerbation? @ -exacerbation Poses a threat to life or bodily function? How? (Chest pain, USA, AR, pneumonia, PE, COPD, DKA, ARF, appy, cholecystitis, CVA, Diverticulitis, Homicidal, Suicidal, threat to staff... and all critical care pts) @ -yes Reevaluation #5: Differential Abdominal Pain Men: Appendicitis, cholecystitis, diverticulosis, ischemic bowel, pancreatitis, hepatitis, UTI, gastroenteritis, AAA, incarcerated hernia, bowel obstruction, constipation, inflammatory bowel, hepatitis, peptic ulcer disease, splenic infarction, perforated viscus, testicular torsion, this is not meant to be an all-inclusive list Medical Decision Making - Medical Decision Making 4 female in the ER for abdominal pain pain control patient can be discharged home - Lab Data Result diagrams: 02/03/25 00:41 02/03/25 00:41 Lab Results 02/03/25 02/03/25 02/03/25 Range/Units 00:41 00:41 00:41 WBC 8.69 (4.50-10.00) 10*3/uL RBC 5.27 H (4.10-5.20) 10*6/uL Hgb 15.1 H (12.0-15.0) g/dL Hct 45.3 (37.2-46.3) % MCV 86.0 (80.0-97.0) fL MCH 28.7 (27.0-32.0) pg MCHC 33.3 (32.0-37.0) g/dL Plt Count 257 (140-440) 10*3/uL MPV 9.7 (9.5-12.2) fL Immature Gran % (Auto) 0.3 % Neutrophils % 83.9 % Lymphocytes % 9.0 % Monocytes % 5.6 % Eosinophils % 1.0 % Basophils % 0.2 % Immature Gran # 0.03 (0.00-0.04) 10*3/uL Neutrophils # 7.28 (1.80-7.70) 10*3/uL Lymphocytes # 0.78 L (0.90-5.00) 10*3/uL Monocytes # 0.49 (0.20-1.00) 10*3/uL Eosinophils # 0.09 (0.04-0.35) 10*3/uL Basophils # 0.02 (0.00-0.10) 10*3/uL PT 10.5 (10.0-12.5) sec INR 0.9 (<1.2) APTT 24.6 (22.0-30.0) sec Sodium 138 (137-145) mmol/L Potassium 4.1 (3.5-5.1) mmol/L Chloride 100 (98-107) mmol/L Carbon Dioxide 28 (22-30) mmol/L Anion Gap 10 mmol/L BUN 25 H (7-17) mg/dL Creatinine 1.10 H (0.52-1.04) mg/dL Est GFR (CKD-EPI)AfAm 56 (>60 ml/min/1.73 sqM) Est GFR (CKD-EPI)NonAf 49 (>60 ml/min/1.73 sqM) Glucose 138 H (74-99) mg/dL Plasma Lactic Acid [place] (0.7-2.0) mmol/L Calcium 9.7 (8.4-10.2) mg/dL Total Bilirubin 1.1 (0.2-1.3) mg/dL AST 42 H (14-36) U/L ALT 18 (4-34) U/L Alkaline Phosphatase 105 (38-126) U/L Troponin I (0.000-0.034) ng/mL Total Protein 7.7 (6.3-8.2) g/dL Albumin 4.3 (3.5-5.0) g/dL Amylase 39 (30-110) U/L Lipase 29 (23-300) U/L Urine Color Urine Appearance (Clear) Urine pH (5.0-8.0) Ur Specific [place] (1.001-1.035) Urine Protein (Negative) Urine Glucose (UA) (Negative) Urine Ketones (Negative) Urine Blood (Negative) Urine Nitrite (Negative) Urine Bilirubin (Negative) Urine Urobilinogen (<2.0) mg/dL Ur Leukocyte Esterase (Negative) 02/03/25 02/03/25 02/03/25 Range/Units 00:41 00:41 00:41 WBC (4.50-10.00) 10*3/uL RBC (4.10-5.20) 10*6/uL Hgb (12.0-15.0) g/dL Hct (37.2-46.3) % MCV (80.0-97.0) fL MCH (27.0-32.0) pg MCHC (32.0-37.0) g/dL Plt Count (140-440) 10*3/uL MPV (9.5-12.2) fL Immature Gran % (Auto) % Neutrophils % % Lymphocytes % % Monocytes % % Eosinophils % % Basophils % % Immature Gran # (0.00-0.04) 10*3/uL Neutrophils # (1.80-7.70) 10*3/uL Lymphocytes # (0.90-5.00) 10*3/uL Monocytes # (0.20-1.00) 10*3/uL Eosinophils # (0.04-0.35) 10*3/uL Basophils # (0.00-0.10) 10*3/uL PT (10.0-12.5) sec INR (<1.2) APTT (22.0-30.0) sec Sodium (137-145) mmol/L Potassium (3.5-5.1) mmol/L Chloride (98-107) mmol/L Carbon Dioxide (22-30) mmol/L Anion Gap mmol/L BUN (7-17) mg/dL Creatinine (0.52-1.04) mg/dL Est GFR (CKD-EPI)AfAm (>60 ml/min/1.73 sqM) Est GFR (CKD-EPI)NonAf (>60 ml/min/1.73 sqM) Glucose (74-99) mg/dL Plasma Lactic Acid [place] 1.2 (0.7-2.0) mmol/L Calcium (8.4-10.2) mg/dL Total Bilirubin (0.2-1.3) mg/dL AST (14-36) U/L ALT (4-34) U/L Alkaline Phosphatase (38-126) U/L Troponin I <0.012 (0.000-0.034) ng/mL Total Protein (6.3-8.2) g/dL Albumin (3.5-5.0) g/dL Amylase (30-110) U/L Lipase (23-300) U/L Urine Color Colorless Urine Appearance Clear (Clear) Urine pH 7.5 (5.0-8.0) Ur Specific [place] 1.012 (1.001-1.035) Urine Protein Negative (Negative) Urine Glucose (UA) Negative (Negative) Urine Ketones Negative (Negative) Urine Blood Negative (Negative) Urine Nitrite Negative (Negative) Urine Bilirubin Negative (Negative) Urine Urobilinogen <2.0 (<2.0) mg/dL Ur Leukocyte Esterase Negative (Negative) - Radiology Data Radiology results: report reviewed (CT abdomen pelvis negative for acute disease), image reviewed Disposition Clinical Impression: Kidney stone Disposition: HOME SELF-CARE Condition: Fair Instructions (If sedation given, give patient instructions): Kidney Stones (ED) Is patient prescribed a controlled substance at d/c from ED?: No Referrals: Casey Isaac MD [Primary Care Provider] - 1-2 days Time of Disposition: 03:45
[2025-02-03] MEDS: SODIUM CHLORIDE 0.9% 1,000 ML IV ONE (00:47)
[2025-02-03] MEDS: ONDANSETRON 4 MG/2 ML VIAL IVP STA (00:48)
[2025-02-03] MEDS: MORPHINE SULFATE 4 MG/ML SYRINGE IVP STA (00:49)
[2025-02-03 01:02] LABS: Basophils # (A) 0.02 10*3/uL (0.00-0.10); Basophils % (A) 0.2 %; Eosinophils # (A) 0.09 10*3/uL (0.04-0.35); HCT 45.3 % (37.2-46.3); HGB 15.1 g/dL (12.0-15.0); Lymphocytes # (A) 0.78 10*3/uL (0.90-5.00); MCH 28.7 pg (27.0-32.0); MCHC 33.3 g/dL (32.0-37.0); Mean Platelet Volume 9.7 fL (9.5-12.2); Monocytes # (A) 0.49 10*3/uL (0.20-1.00); Monocytes % (A) 5.6 %; Neutrophils # (A) 7.28 10*3/uL (1.80-7.70); Neutrophils % (A) 83.9 %; Platelet Count 257 10*3/uL (140-440); RBC 5.27 10*6/uL (4.10-5.20); RDW 13.5 % (11.5-14.5); WBC 8.69 10*3/uL (4.50-10.00)
[2025-02-03 01:03] LABS: Appearance,Urine Clear (Clear); Bilirubin,Urine Negative (Negative); Blood,Urine Negative (Negative); Color,Urine Colorless; Glucose,Urine (UA) Negative (Negative); Ketones,Urine Negative (Negative); Leukocyte Esterase,Urine Negative (Negative); Nitrite,Urine Negative (Negative); PH, Urine 7.5 (5.0-8.0); Protein,Urine Negative (Negative); Specific Gravity,Urine 1.012 (1.001-1.035); Urobilinogen,Urine <2.0 mg/dL (<2.0)
[2025-02-03] MEDS: PANTOPRAZOLE 40 MG/10 ML VIAL IVP STA (01:05)
[2025-02-03 01:13] LABS: ALT 18 U/L (4-34); African American GFR (CKD) 56 (>60 ml/min/1.73 sqM); Amylase 39 U/L (30-110); Anion Gap 10 mmol/L; Blood Urea Nitrogen 25 mg/dL (7-17); Calcium 9.7 mg/dL (8.4-10.2); Carbon Dioxide 28 mmol/L (22-30); Chloride 100 mmol/L (98-107); Glucose 138 mg/dL (74-99); Lipase 29 U/L (23-300); Non-African American GFR(CKD) 49 (>60 ml/min/1.73 sqM); Sodium 138 mmol/L (137-145)
[2025-02-03 01:15] LABS: AST 42 U/L (14-36); Albumin 4.3 g/dL (3.5-5.0); Alkaline Phosphatase 105 U/L (38-126); Potassium 4.1 mmol/L (3.5-5.1); Total Bilirubin 1.1 mg/dL (0.2-1.3); Total Protein 7.7 g/dL (6.3-8.2)
[2025-02-03 01:51] LABS: INR 0.9 (<1.2); Partial Thromboplastin Time 24.6 sec (22.0-30.0); Prothrombin Time 10.5 sec (10.0-12.5)
[2025-02-03] MEDS: KETOROLAC 15 MG/ML 1 ML VIAL IVP STA (02:12)
--- NOTE | 2025-02-03 03:34 | CT ---
EXAM: CT Abdomen and Pelvis Without Intravenous Contrast CLINICAL HISTORY: ITS.REASON CT Reason: abdominal pain TECHNIQUE: Axial computed tomography images of the abdomen and pelvis without intravenous contrast. CTDI is 15.2 mGy and DLP is 850.2 mGy-cm. This CT exam was performed using one or more of the following dose reduction techniques: automated exposure control, adjustment of the mA and/or kV according to patient size, and/or use of iterative reconstruction technique. COMPARISON: No relevant prior studies available. FINDINGS: Lung bases: Unremarkable. No mass. No consolidation. ABDOMEN: Liver: Unremarkable. Gallbladder and bile ducts: Unremarkable. No calcified stones. No ductal dilation. Pancreas: Unremarkable. No ductal dilation. Spleen: Unremarkable. No splenomegaly. Adrenals: Unremarkable. No mass. Kidneys and ureters: Nonobstructing 2 mm LEFT lower pole renal stone. Nonobstructing 2 mm LEFT upper pole renal stone. Nonobstructing 3 mm RIGHT lower pole renal stone. Multiple bilateral parapelvic cysts. Stomach and bowel: Diverticulosis, without acute diverticulitis. No small bowel obstruction. No free intraperitoneal air. PELVIS: Appendix: No findings to suggest acute appendicitis. Bladder: Unremarkable. No stones. Reproductive: Hysterectomy. ABDOMEN and PELVIS: Intraperitoneal space: Unremarkable. No free air. No significant fluid collection. Bones/joints: No acute fracture. No dislocation. Soft tissues: Unremarkable. Vasculature: Unremarkable. No abdominal aortic aneurysm. Lymph nodes: Unremarkable. No enlarged lymph nodes. IMPRESSION: 1. Nonobstructing 2 mm LEFT lower pole renal stone. Nonobstructing 2 mm LEFT upper pole renal stone. Nonobstructing 3 mm RIGHT lower pole renal stone. 2. Hysterectomy. 3. Diverticulosis, without acute diverticulitis. No small bowel obstruction. No free intraperitoneal air.
[2025-02-03] MEDS: traMADol 50 MG STARTER PACK 3 TAB BTL PO STA (03:53)
[2025-02-03] MEDS: ONDANSETRON 4 MG ODT STARTER PACK 2 TAB BTL PO STA (03:53)
[2025-02-03 04:04] VITALS: BP 142/96; PULSE 115; RESP 18
== END 2025-02-03 04:50 | disposition home or self-care (01) ==
LOC: EC 00:14
DX: N20.0 Calculus of kidney (principal); Z88.8 Allergy status to other drugs, medicaments and biological substances
CPT/HCPCS: 36415; 80053; 82150; 83605; 83690; 84484; 85025; 85610; 85730; 81003; 74176; 99284; 96374; 96375; 96361; J2270; J2405; J1885; S0119; J2470